=== PATIENT | male | born 1980 | race Caucasian/White ===

== ENCOUNTER 2021-11-20 15:00 | Emergency (ER) | payer OTHER, SELFPAY ==
[2021-11-20 15:01] VITALS: BP 150/94; PULSE 76; RESP 17; TEMP 36.6; O2SAT 98; BMI 37.8
--- NOTE | 2021-11-20 15:38 | ED_ITS ---
HPI - Allergic Reaction General Chief complaint: General Medical Stated complaint: Bee sting/Allergic reaction Time Seen by Provider: 11/20/21 15:11 Source: patient and family ( at bedside) Mode of arrival: ambulatory Limitations: no limitations History of Present Illness HPI narrative: 41-year-old male presenting to the ED with at bedside with complaints of erythema to his left calf medial aspect after he was stung by a bee prior to arrival. Reports that he took 50 mg of Benadryl prior to arrival. Reports that as a child he had allergic reaction to bee stings and required hospitalization. He denies any fevers, chills, dizziness, headaches, neck pain/stiffness, trouble swallowing or breathing, drooling, change in voice, wheezing, chest pain or shortness back on dyspnea on exertion, orthopnea, palpitations, paresthesias, nausea/vomiting/diarrhea, abdominal pain, swelling of the face/eyes/nose, sore throat or any other symptoms complaints or concerns at this time. MD complaint: allergic reaction and other (Erythema to left lower extremity status post bee sting) Onset (ago): hour(s) (Prior to arrival) Exposure: insect bite (bee sting) Known history of allergy to: bee stings Symptoms: itching Severity: mild Treatment prior to arrival: benadryl Previous Allergic Reaction History: prior ED visit(s), anaphylaxis and angioedema Related Data Previous Rx's Medication Instructions Recorded diphenhydramine HCl 25 mg capsule 50 mg PO TID PRN allergic reaction 11/20/21 (Allergy (diphenhydramine)) #14 caps epinephrine 0.3 mg/0.3 mL 0.3 mg (0.3 mL) IM Q20M PRN 11/20/21 injection, auto-injector (EpiPen) anaphylaxis #2 ea famotidine 20 mg tablet (Pepcid) 20 mg PO BID rash #14 tabs 11/20/21 prednisone 20 mg tablet 40 mg PO DAILY rash 5 days #10 tabs 11/20/21 Allergies Allergy/AdvReac Type Severity Reaction Status Date / Time bee pollen [bee stings] Allergy Anaphylaxis Verified 11/20/21 15:54 erythromycin base Allergy Unknown Verified 11/20/21 15:54 Review of Systems Review of Systems: Constitutional : No Fever, No Chills , no body aches, no recent illness Head/Face: No facial swelling, No facial redness ENT/Mouth : No oral/throat swelling, No Hoarseness, No Swallowing Difficulty Eyes: No Eye Pain, No Swelling, No Redness Cardiovascular : No Chest Pain, No SOB, No palpitations Respiratory : No Cough, No Sputum, No Wheezing, No Smoke Exposure, No Dyspnea Gastrointestinal : No Nausea, No Vomiting, No Diarrhea, No abdominal Pain Genitourinary : No Dysuria, No Urinary Frequency, No Hematuria Musculoskeletal : No joint pain, No Myalgias, No Joint Swelling Skin : No Skin Lesions, positive rash Neuro : No Weakness, No Numbness, No Headache, No dizziness, No tingling Psych : No Anxiety/Panic, No Depression Heme/Lymph: No Bruising, No Lymphadenopathy Endocrine : No Polyuria, No Polydipsia Denies changes in lotions or detergents. Denies new medications or any changes in medications. Denies drainage from rash. Denies any recent sick contacts or recent travel. Yes all other systems are reviewed and are negative PMFSH Past Medical History Attestation statement: The following information was validated with the patient. Source: old records reviewed and nursing notes reviewed Medical History (Updated 11/20/21 @ 15:48 by TAMARA Chakraborty) Back spasm Bee sting allergy Depression Sleep apnea Social History Social History Alcohol intake: current Alcohol intake frequency: 0-2 drinks per day Alcohol type: beer Patient Tobacco Use Status: Former Tobacco user Smoked in Last 30 Days: Yes Use of substances other than those prescribed or required for medical reasons: No Advance Directives: No Advance Directives Information Provided: Yes Physical Exam ED Vital Signs: Vital Signs - 24 hr 11/20/21 15:01 11/20/21 15:44 Temperature 98 F Pulse Rate 76 85 Respiratory Rate 17 18 Blood Pressure 150/94 H 112/76 Pulse Oximetry 98 96 Oxygen Delivery Method Room Air Room Air BMI result Body Mass Index 37.8 vital signs have been reviewed as normal and appeared to be correct. Blood pressure 150/94. Heart rate normal. Respiration rate normal. Temperature normal. Oxygen saturation normal. Appearance: Alert. Oriented X3. No acute distress. Head: Normal external exam. Normocephalic. Atraumatic. No angioedema noted. Eyes: PERRLA. EOMI. Conjunctiva and sclera normal. Eyelids normal. ENT: EAC normal. TM's Normal. Pharynx normal. Uvula midline. Moist mucous membranes. No lesions/ulcerations or masses noted on the tongue. Normal voice. No trismus noted. No drooling noted. No muffled voice noted. Neck: Normal inspection. Neck supple. FROM. No adenopathy. Thyroid Normal. No tracheal deviation noted. No crepitus is noted. No meningeal signs. No neck mass noted. No signs of trauma noted. CVS: Normal heart rate and rhythm. Heart sound normal. Pulses normal throughout. No murmurs/rales/gallops. Respiratory: No respiratory distress. Painless inspiration. Breath sounds normal. No wheezes/rales/rhonchi noted. Chest nontender. No crepitus is noted. No signs of trauma noted. No accessory muscle usage noted or decreased air movement noted. No signs of trauma. Abdomen: Soft and nontender. Bowel sounds normal in all 4 quadrants. No distention noted. No organomegaly noted. No visible injury noted. Back: No CVA tenderness. Full range of motion noted. Nontender. No signs of trauma. Patient neuro intact bilaterally and distally on all 4 extremities. Patient's reflexes intact bilaterally and distally on all 4 extremities. No rashes/lesion/induration/fluctuance or signs of infection noted. Skin: Skin warm and dry. Normal skin color. Normal skin turgor. To the left medial calf patient has some erythema with soft tissue swelling. No additional rashes/lesions/lacerations noted. Extremities: No lower extremity edema. No calf tenderness is noted. Extr emities exhibit normal range of motion and nontender. Neuro: Oriented X 3. No motor deficit. No sensory deficit. Reflexes normal. Normal steady gait. No focal neuro deficits noted. CN's II-XII intact bilaterally? Vascular: + radial pulses/+ 2 distal pedal pulses/+2 dorsalis pedis b/l. Normal cap refill. No cyanosis noted to upper extremity nails and lower extremity toes nails. Course Course Course Narrative: IMP/Plan: Allergic rxn. Not anaphylaxis. Not sepsis/ infectious etiology. Patient well appearing in no acute distress, breathing easily without throat symptoms. Speaking full sentences, and handling secretions without difficulty. There is no obvious threat to airway. Lungs are CTA in all tomas. No signs of angioedema, stridor, airway compromise, anaphylaxis or anaphylactic shock. Not c/w SSSS/ TEN/ Eryth multiforme/ Mancini Johnsons. Given HPI and PE - Will watch and observe. If patient continues to be symptom free - will d/c with return precautions. Patient understands and agrees with plan MDM - Allergic Reaction Medical Records Attestation: I reviewed the patient's medical records. Discharge Plan Discharge Clinical Impression: Allergic reaction, Bee sting Patient Disposition: Home, Self-Care Instructions: General Allergic Reaction (ED) Prescriptions: New diphenhydramine HCl [Allergy (diphenhydramine)] 25 mg capsule 50 mg PO TID PRN (Reason: allergic reaction) Qty: 14 0RF famotidine [Pepcid] 20 mg tablet 20 mg PO BID Qty: 14 0RF prednisone 20 mg tablet 40 mg PO DAILY 5 Days Qty: 10 0RF epinephrine [EpiPen] 0.3 mg/0.3 mL auto-injector 0.3 mg IM Q20M PRN (Reason: anaphylaxis) Qty: 2 0RF Rx Instructions: do not exceed 3 doses per episode Referrals: Mario Schulz MD [Primary Care Provider] - 2 days (your pcp) Stand Alone Forms: Work/School Release
[2021-11-20] MEDS: Famotidine 20 MG TABLET PO (15:42)
[2021-11-20] MEDS: predniSONE 20 MG TABLET 60 MG PO (15:42)
[2021-11-20 15:44] VITALS: BP 112/76; PULSE 85; RESP 18; O2SAT 96
--- NOTE | 2021-11-20 15:50 | PC.NURSE ---
pt a&ox3, vss, RR even and unlabored, localized pain at site of bee sting, medicated per provider order. no new orders at this time.
== END 2021-11-20 16:35 | disposition home or self-care (01) ==
PROVIDERS: Emergency Provider Emergency Medicine; PCP Internal Medicine
DX: L50.0 Allergic urticaria (principal)
CPT/HCPCS: 99284

== ENCOUNTER 2022-10-23 17:53 | Emergency (ER) | payer OTHER, SELFPAY ==
--- NOTE | 2022-10-23 18:21 | ED.GENADULT ---
HPI - General Adult General Chief complaint: Allergic Reaction Stated complaint: bee sting epipen x1 Time Seen by Provider: 10/23/22 18:27 Source: patient, RN notes reviewed and old records reviewed Mode of arrival: ambulatory History of Present Illness HPI narrative: 42-year-old male presents for evaluation of a bee sting. Patient reports that he was stung by a bee at approximately 5:30 p.m. today He was stung once on the left lower leg Patient reports a history of allergic reaction from about 30 years ago He states at that time his left leg swelled up pretty quickly and then he could see a rash and swelling spreading up his body Due to this previous reaction he immediately gave himself an EpiPen He reports that he feels well He denies any shortness of breath, swelling, difficulty swallowing No other complaints or concerns at this time Related Data Previous Rx's Medication Instructions Recorded diphenhydramine HCl 25 mg capsule 50 mg PO TID PRN allergic reaction 11/20/21 (Allergy (diphenhydramine)) #14 caps epinephrine 0.3 mg/0.3 mL 0.3 mg (0.3 mL) IM Q20M PRN 11/20/21 injection, auto-injector (EpiPen) anaphylaxis #2 ea famotidine 20 mg tablet (Pepcid) 20 mg PO BID rash #14 tabs 11/20/21 prednisone 20 mg tablet 40 mg PO DAILY rash 5 days #10 tabs 11/20/21 epinephrine 0.3 mg/0.3 mL 0.3 mg (0.3 mL) IM Q4H PRN 10/23/22 injection, auto-injector (EpiPen anaphylaxis #2 ea 2-Laz) Allergies Allergy/AdvReac Type Severity Reaction Status Date / Time bee pollen [bee stings] Allergy Anaphylaxis Verified 11/20/21 15:54 erythromycin base Allergy Unknown Verified 11/20/21 15:54 Review of Systems Constitutional: Constitutional: Denies chills and Denies fever(s) Cardiovascular: Cardiovascular: Denies chest pain and Reports dyspnea Respiratory: Respiratory: Denies cough and Reports dyspnea PMFSH Past Medical History Medical History (Updated 10/23/22 @ 19:25 by Mitch Guo) Back spasm Bee sting allergy Depression Sleep apnea Social History Social History Alcohol intake: current Alcohol intake frequency: 0-2 drinks per day Alcohol type: beer Patient Tobacco Use Status: Former Tobacco user Advance Directives: No Advance Directives Information Provided: Yes Physical Exam ED Vital Signs: Vital Signs - 24 hr 10/23/22 18:22 Temperature 98.4 F Pulse Rate 99 Respiratory Rate 18 Blood Pressure 144/101 H Pulse Oximetry 97 Oxygen Delivery Method Room Air BMI result Body Mass Index 38.6 Const General: healthy appearing, comfortable, no acute distress, alert and awake Nutritional Appearance: well nourished Orientation/consciousness: patient oriented x3 HENMT Other: No oral, perioral or retropharyngeal edema Head: Yes normocephalic and Yes atraumatic Throat: Yes posterior oropharynx normal Eyes Eyelids: Yes eyelids normal Conjunctivae: conjunctivae normal Sclerae: sclerae normal Corneas: corneas normal Pupils: Equal, round and reactive pupils present EOM: EOMs intact bilaterally Neck Neck: Yes full ROM Resp Effort & Inspection: normal respiratory effort, able to speak in complete sentences, no audible wheezes, not labored and no stridor Auscultation: clear to auscultation bilaterally Skin General skin exam: no rashes or lesions noted and elasticity normal Neuro General: patient oriented x3 Cranial nerves: Yes Equal, round and reactive pupils present and Yes Bilaterally intact EOM present Cognition (Neuro): normal cognition Extrem Other: Moving all extremities well without any obvious deformities Course Course Course Narrative: This is an RME: Additional HPI, ROS, PE not included below will be deferred to primary provider. 42 yo M presents w/ bee sting to left ankle about an hour and a half ago. Patient gave himself an epi pen. 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 Denies any new symptoms, he is stable for discharge this time. A new EpiPen pack was sent to his pharmacy. He was instructed to return for any new or worsening symptom Time: 19:31 Medications Administered Discontinued Medications Generic Name Dose Route Start Last Admin Trade Name Freq PRN Reason Stop Dose Admin Diphenhydramine HCl 25 mg 10/23/22 18:37 10/23/22 18:55 Diphenhydramine Hcl 25 Mg Capsule PO 10/23/22 18:38 25 mg ONCE ONE Administration Famotidine 20 mg 10/23/22 18:37 10/23/22 18:55 Famotidine 20 Mg Tablet PO 10/23/22 18:38 20 mg ONCE ONE Administration Prednisone 40 mg 10/23/22 18:37 10/23/22 18:55 Prednisone 20 Mg Tablet PO 10/23/22 18:38 40 mg ONCE ONE Administration Medical Decision Making Medical Decision Making MDM Narrative: 32-year-old male presents for evaluation after a bee sting. He self injected an EpiPen. He has a pinpoint insect bite to his left lower extremity, no surrounding rash, no significant edema. No evidence of anaphylaxis. The patient will be observed in the ER. Given his describes history of previous significant reaction he was treated with oral prednisone, Benadryl and Pepcid though he has no signs of anaphylaxis as previously mentioned. Differential Diagnosis Differential Diagnoses: The differential diagnosis associated with the presentation includes Allergic reaction Insect bite Bee sting Urticaria Discharge Plan Discharge Clinical Impression: Bee sting Patient Disposition: Home, Self-Care Additional Instructions: Your treated with prednisone, Benadryl and Pepcid for an allergic reaction given your history. It does not appear that you had any allergic reaction today after your bee sting This may be because you self-treated with epinephrine before coming to the hospital Follow-up with your primary doctor A new prescription for EpiPen was sent to your pharmacy Prescriptions: New epinephrine [EpiPen 2-Laz] 0.3 mg/0.3 mL auto-injector 0.3 mg IM Q4H PRN (Reason: anaphylaxis) Qty: 2 0RF No Action diphenhydramine HCl [Allergy (diphenhydramine)] 25 mg capsule 50 mg PO TID PRN (Reason: allergic reaction) Qty: 14 0RF famotidine [Pepcid] 20 mg tablet 20 mg PO BID Qty: 14 0RF prednisone 20 mg tablet 40 mg PO DAILY 5 Days Qty: 10 0RF epinephrine [EpiPen] 0.3 mg/0.3 mL auto-injector 0.3 mg IM Q20M PRN (Reason: anaphylaxis) Qty: 2 0RF Rx Instructions: do not exceed 3 doses per episode
[2022-10-23 18:22] VITALS: BP 144/101; PULSE 99; RESP 18; TEMP 36.9; O2SAT 97; BMI 38.6
[2022-10-23] MEDS: predniSONE 20 MG TABLET 40 MG PO (18:55)
[2022-10-23] MEDS: Famotidine 20 MG TABLET PO (18:55)
[2022-10-23] MEDS: diphenhydrAMINE HCL 25 MG CAPSULE PO (18:55)
== END 2022-10-23 19:39 | disposition home or self-care (01) ==
PROVIDERS: Emergency Provider Internal Medicine; PCP Internal Medicine
DX: S80.862A Insect bite (nonvenomous), left lower leg, initial encounter (principal); W57.XXXA Bitten or stung by nonvenomous insect and other nonvenomous arthropods, initial encounter; Y93.9 Activity, unspecified; Y92.9 Unspecified place or not applicable; Y99.9 Unspecified external cause status
CPT/HCPCS: 99282; 99283

== ENCOUNTER 2022-11-21 17:36 | Emergency (ER) | payer OTHER, SELFPAY ==
[2022-11-21 17:40] VITALS: BP 140/83; PULSE 108; RESP 20; TEMP 36.6; O2SAT 96; BMI 38.1
== END 2022-11-21 21:52 | disposition left against medical advice (07) ==
PROVIDERS: Emergency Provider Emergency Medicine
DX: T63.441A Toxic effect of venom of bees, accidental (unintentional), initial encounter (principal); Y92.9 Unspecified place or not applicable
CPT/HCPCS: 99281

== ENCOUNTER 2022-11-22 15:10 | Emergency (ER) | payer OTHER, SELFPAY ==
[2022-11-22 15:45] VITALS: PULSE 89; RESP 16; TEMP 36.9; O2SAT 96; BMI 39.7
--- NOTE | 2022-11-22 15:46 | ED_ITS ---
HPI - Allergic Reaction General Chief complaint: Allergic Reaction Stated complaint: bee sting t-1, L forearm is swollen, tender Time Seen by Provider: 11/22/22 16:24 Source: patient Mode of arrival: ambulatory Limitations: no limitations History of Present Illness HPI narrative: 42 yo male right hand dominant here with swelling/redness/pain to left forearm after being stung by a bee yesterday. 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 No difficult breathing, chest pain, coug h, vomiting, diarrhea, abdominal cramping. No reports of numbness, tingling, fevers, chills. Related Data Previous Rx's Medication Instructions Recorded diphenhydramine HCl 25 mg capsule 50 mg PO TID PRN allergic reaction 11/20/21 (Allergy (diphenhydramine)) #14 caps epinephrine 0.3 mg/0.3 mL 0.3 mg (0.3 mL) IM Q20M PRN 11/20/21 injection, auto-injector (EpiPen) anaphylaxis #2 ea famotidine 20 mg tablet (Pepcid) 20 mg PO BID rash #14 tabs 11/20/21 prednisone 20 mg tablet 40 mg PO DAILY rash 5 days #10 tabs 11/20/21 epinephrine 0.3 mg/0.3 mL 0.3 mg (0.3 mL) IM Q4H PRN 10/23/22 injection, auto-injector (EpiPen anaphylaxis #2 ea 2-Laz) doxycycline monohydrate 100 mg 100 mg PO BID #14 caps 11/22/22 capsule prednisone 20 mg tablet 60 mg PO DAILY #15 tabs 11/22/22 Allergies Allergy/AdvReac Type Severity Reaction Status Date / Time bee pollen [bee stings] Allergy Anaphylaxis Verified 11/20/21 15:54 erythromycin base Allergy Unknown Verified 11/20/21 15:54 Review of Systems Review of Systems: Yes all other systems are reviewed and are negative Constitutional: Constitutional: Reports no additional constitutional complaints, Denies body ache(s), Denies chills, Denies fever(s), Denies headache(s) and Denies weakness Eyes: Eyes: Reports no additional eye complaints and Denies change in vision ENT: Reports system reviewed and no additional complaints, except as documented, Denies dizziness, Denies headache(s), Denies nasal congestion, Denies nasal discharge and Denies neck pain Cardiovascular: Cardiovascular: Reports no additional cardiovascular complaints, Denies chest pain, Denies leg edema and Denies dyspnea Respiratory: Respiratory: Reports no additional respiratory complaints, Denies cough and Denies dyspnea Gastrointestinal: Gastrointestinal: Reports no additional gastrointestinal complaints, Denies abdominal pain, Denies diarrhea, Denies nausea and Denies vomiting Genitourinary: Genitourinary: Denies urinary incontinence Musculoskeletal: Musculoskeletal: Reports no additional musculoskeletal complaints, Denies back pain, Denies arthralgias, Denies joint swelling, Denies neck pain, Denies numbness and Denies tingling Integumentary/Breasts: Skin/Breast: Reports system reviewed and no additional complaints, except as docu, Reports swelling, Reports erythema and Denies rash Neurologic: Reports system reviewed and no additional complaints, except as documented, Denies dizziness, Denies headache(s), Denies numbness, Denies tingling and Denies weakness PMFSH Past Medical History Attestation statement: The following information was validated with the patient. Source: old records reviewed and nursing notes reviewed Medical History Back spasm Bee sting allergy Depression Sleep apnea Social History Social History Alcohol intake: current Alcohol intake frequency: 0-2 drinks per day Alcohol type: beer Patient Tobacco Use Status: Former Tobacco user Advance Directives: No Advance Directives Information Provided: Yes Physical Exam ED Vital Signs: Vital Signs - 24 hr 11/22/22 15:45 Temperature 98.4 F Pulse Rate 89 Respiratory Rate 16 Pulse Oximetry 96 Oxygen Delivery Method Room Air BMI result Body Mass Index 39.7 Const General: cooperative, healthy appearing, comfortable and no acute distress Orientation/consciousness: patient oriented x3 Limitations: no limitations HENMT Head: Yes normal to inspection Ears: hearing grossly normal bilaterally Eyes General: appearance normal, both eyes and all related structures Pupils: Equal, round and reactive pupils present Neck Neck: Yes normal visual inspection Chest Chest palpation & inspection: normal inspection of the chest Resp Effort & Inspection: normal respiratory effort Auscultation: clear to auscultation bilaterally Cardio Rate: regular rate Rhythm: regular rhythm Peripheral pulses: Peripheral pulses 2+ throughout Neuro General: patient oriented x3 Cranial nerves: Yes Equal, round and reactive pupils present Extrem Other: 2+ radial and ulnar pulses, normal distal sensation, normal passive and active rom of LUE Compartments are soft and compressible Course Course Course Narrative: This is an RME: Additional HPI, ROS, PE not included below will be deferred to primary provider. This is a [id number], with a history of hives from bee stings, presenting to the emergency department with complaints of left forearm swelling, tenderness since yesterday. Patient reports that he was done once in the left forearm. He went to the emergency department yesterday after administering an EpiPen dose to him self yesterday he waited in the waiting room and left without being seen. He states that he is feeling okay right now, however has had increasing redness, swelling, warm to the touch to his left arm. He is under no acute distress, airway is patent, no wheezes noted. Plan: Further ER evaluation needed. Medical Decision Making Medical Decision Making MDM Narrative: 42 yo male right hand dominant here with swelling/redness/pain to left forearm after being stung by a bee yesterday. 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 No difficult breathing, chest pain, cough, vomiting, diarrhea, abdominal cramping. No reports of numbness, tingling, fevers, chills. On exam patient with almost circumferential erythema/swelling, compartments are soft and compressible. CMS intact distally. FROM. May be secondary to allergy although consider cellulitis. Patient will be started on prednisone, doxycycline this week Reviewed worrisome signs/symptoms with patient and when to seek additional care. Comfortable with discharge home Differential Diagnosis Differential Diagnoses: The differential diagnosis associated with the prese ntation includes cellulitis, allergic reaction low concern for compartment syndrome, nec fasc-compartments are soft and compressible, pain is NOT out of proportion, Vitals are stable Admission/Observation Consideration of admission/observation: Escalation of care including admission/observation considered Mild allergic reaction/cellulitis that would be conducive to oral antibiotics, no need at this time to initiate iv antibiotics. Prescription Management I considered prescription management with: Antibiotic see abive Discharge Plan Discharge Clinical Impression: Allergic reaction, Cellulitis Patient Disposition: Home, Self-Care Instructions: Cellulitis (ED), General Allergic Reaction (ED) Additional Instructions: Take the medications as prescribed Return for fever, increasing redness/swelling/pain, numbness/tingling in your fingers Prescriptions: New prednisone 20 mg tablet 60 mg PO DAILY Qty: 15 0RF doxycycline monohydrate 100 mg capsule 100 mg PO BID Qty: 14 0RF No Action diphenhydramine HCl [Allergy (diphenhydramine)] 25 mg capsule 50 mg PO TID PRN (Reason: allergic reaction) Qty: 14 0RF famotidine [Pepcid] 20 mg tablet 20 mg PO BID Qty: 14 0RF prednisone 20 mg tablet 40 mg PO DAILY 5 Days Qty: 10 0RF epinephrine [EpiPen] 0.3 mg/0.3 mL auto-injector 0.3 mg IM Q20M PRN (Reason: anaphylaxis) Qty: 2 0RF Rx Instructions: do not exceed 3 doses per episode epinephrine [EpiPen 2-Laz] 0.3 mg/0.3 mL auto-injector 0.3 mg IM Q4H PRN (Reason: anaphylaxis) Qty: 2 0RF Referrals: Physician,Unknown J [Primary Care Provider] - 1 week Interventions: ED Discharge Assessment Last Done: 11/22/22 16:52 Discharge Date/Time: 11/22/22 16:53
== END 2022-11-22 16:53 | disposition home or self-care (01) ==
PROVIDERS: Emergency Provider Student in an Organized Health Care Education/Training Program
DX: T63.441A Toxic effect of venom of bees, accidental (unintentional), initial encounter (principal); L03.114 Cellulitis of left upper limb; Y92.9 Unspecified place or not applicable
CPT/HCPCS: 99282; 99283

== ENCOUNTER 2024-10-23 17:59 | Emergency (ER) | payer OTHER, SELFPAY ==
--- NOTE | 2024-10-23 18:07 | PC.NURSE ---
pt UTD on tetanus- last dose 12/2023
[2024-10-23 18:08] VITALS: BP 121/85; PULSE 85; RESP 18; TEMP 36.6; O2SAT 98; BMI 38.6
--- NOTE | 2024-10-23 19:58 | ED_ITS ---
HPI - General Adult General Chief complaint: General Medical Stated complaint: bat exposure Time Seen by Provider: 10/23/24 18:18 Source: patient Limitations: no limitations History of Present Illness ED Provider: Jenny oGodman PA-C HPI narrative: 44 year old male with no pertinent pmhx who reports to the ED with concerns after a bat exposure. He states he and his woke up to two bats in their bedroom 2 nights ago. He is here to discuss a rabies vaccine. The bats were alive. He states he removed one bat using a hamper and the other bat using a trashbag. He was not bitten. He never physically touched either animal. He denies experiencing new symtoms. He has not been vaccinated before. Related Data Previous Rx's ?Medication ?Instructions ?Recorded diphenhydramine HCl 25 mg capsule 50 mg (2 x 25 mg) PO TID PRN 11/20/21 (Allergy (diphenhydramine)) allergic reaction #14 caps epinephrine 0.3 mg/0.3 mL 0.3 mg (0.3 mL) IM Q20M PRN 11/20/21 injection, auto-injector (EpiPen) anaphylaxis #2 ea famotidine 20 mg tablet (Pepcid) 20 mg PO BID rash #14 tabs 11/20/21 prednisone 20 mg tablet 40 mg (2 x 20 mg) PO DAILY r kala 5 11/20/21 days #10 tabs epinephrine 0.3 mg/0.3 mL 0.3 mg (0.3 mL) IM Q4H PRN 0 10/23/22 injection, auto-injector (EpiPen anaphylaxis #2 ea 2-Alz) doxycycline monohydrate 100 mg 100 mg PO BID #14 caps 11/22/22 capsule prednisone 20 mg tablet 60 mg (3 x 20 mg) PO DAILY # 15 tabs 11/22/22 Allergies Allergy/AdvReac Type Severity Reaction Status Date / Time bee pollen (bee stings) Allergy Anaphylaxis Verified 10/23/24 18:15 erythromycin base Allergy Unknown Verified 10/23/24 18:15 Review of Systems Review of Systems: Yes all other systems are reviewed and are negative Constitutional: Constitutional: Denies fatigue and Denies fever(s) Respiratory: Respiratory: Denies cough Gastrointestinal: Gastrointestinal: Denies abdominal pain, Denies nausea and Denies vomiting Musculoskeletal: Musculoskeletal: Reports arthralgias Endocrine: Endocrine: Denies fatigue PMFSH Past Medical History Attestation statement: The following information was validated with the patient. Medical History Back spasm Bee sting allergy Depression Sleep apnea Social History Social History Alcohol intake: current Alcohol intake frequency: holidays/special occasions only Alcohol type: beer Patient Tobacco Use Status: Former Tobacco user Smoked in Last 30 Days: No Use of substances other than those prescribed or required for medical reasons: Yes Substance Use Type: Marijuana Advance Directives: No Advance Directives Information Provided: Yes Do you have a plan to hurt others: No Plan Physical Exam ED Vital Signs: Vital Signs - 24 hr 10/23/24 18:08 Temperature 97.9 F Pulse Rate 85 Respiratory Rate 18 Blood Pressure 121/85 Pulse Oximetry 98 Oxygen Delivery Method Room Air BMI result Body Mass Index 38.6 Const Other: Alert well-appearing Orientation/consciousness: patient oriented x3 Resp Effort & Inspection: normal respiratory effort Cardio Other: Normal peripheral perfusion Skin Other: Warm dry no rash Neuro General: patient oriented x3, gait normal, no focal motor deficits and CN's II- XI intact bilaterally Psych Other: Cooperative Medical Decision Making Medical Decision Making MDM Narrative: 44 year old male with no pertinent pmhx who reports to the ED with concerns after a bat exposure. He states he and his woke up to two bats in their bedroom 2 nights ago. He is here to discuss a rabies vaccine. The bats were alive. He states he removed one bat using a hamper and the other bat using a trashbag. He was not bitten. He never physically touched either animal. He denies experiencing new symtoms. He has not been vaccinated before. No chronic issues History: Per patient I have considered the following differential diagnoses: Potential exposure to a bat Plan: There was no physical encounter with the back, the bat was in the room, when the patient remove the back from the home, there was no physical contact. This does not constitute the need to initiate antibiotic therapy or vaccine series. Discharge Plan Discharge Clinical Impression: Exposure to bat without known bite Patient Disposition: Home, Self-Care Additional Instructions: Being in proximity of a mammal, that could potentially carry rabies, does not constitute the need for rabies antibody therapy or initiating the vaccine series. Follow up with your primary care provider as needed. Prescriptions: No Action diphenhydramine HCl [Allergy (diphenhydramine)] 25 mg capsule 50 mg PO TID PRN (Reason: allergic reaction) Qty: 14 0RF famotidine [Pepcid] 20 mg tablet 20 mg PO BID Qty: 14 0RF prednisone 20 mg tablet 40 mg PO DAILY 5 Days Qty: 10 0RF epinephrine [EpiPen] 0.3 mg/0.3 mL auto-injector 0.3 mg IM Q20M PRN (Reason: anaphylaxis) Qty: 2 0RF Rx Instructions: do not exceed 3 doses per episode epinephrine [EpiPen 2-Laz] 0.3 mg/0.3 mL auto-injector 0.3 mg IM Q4H PRN (Reason: anaphylaxis) Qty: 2 0RF prednisone 20 mg tablet 60 mg PO DAILY Qty: 15 0RF doxycycline monohydrate 100 mg capsule 100 mg PO BID Qty: 14 0RF Print Language: [place]
[2024-10-23 20:43] VITALS: BP 121/85; PULSE 85; RESP 18; TEMP 36.6; O2SAT 98
== END 2024-10-23 20:44 | disposition home or self-care (01) ==
PROVIDERS: Emergency Provider Internal Medicine; PCP Internal Medicine
DX: Z20.3 Contact with and (suspected) exposure to rabies (principal)
CPT/HCPCS: 99282; 99283

== ENCOUNTER 2024-10-23 23:45 | Emergency (ER) | payer OTHER, SELFPAY ==
[2024-10-23 23:55] VITALS: BP 127/74; PULSE 78; RESP 18; TEMP 36.3; O2SAT 96; BMI 39.3
--- NOTE | 2024-10-24 02:31 | ED.GENADULT ---
HPI - General Adult General Chief complaint: Animal Bite Stated complaint: rabies vaccine, exposed to another bat Time Seen by Provider: 10/24/24 02:25 Source: patient Mode of arrival: ambulatory Limitations: no limitations History of Present Illness ED Provider: Dr. Tenisha Brown HPI narrative: Patient comes to the emergency room complaining of a bad exposure. Patient states that 2 days ago, he saw beds in his bedroom and last night, he saw another bad. Patient states that he was seen here earlier today, he has a discussion with the provider about the immunizations with immunoglobulin/vaccine. Patient states that he does not believe that he got bitten, and opted not to get immunized for rabies. Patient states that after this conversation , he went home. Patient states that his and [id number] went to a different hospital and they got immunized. Patient states that his family sent him back to the hospital to get immunized. Patient states that he is completely asymptomatic. However, given the patient's family's request, he is agreeable to get immunized. Patient states that he is up-to-date with his Tdap, which she got about a year to 2 years ago Related Data Previous Rx's ?Medication ?Instructions ?Recorded diphenhydramine HCl 25 mg capsule 50 mg (2 x 25 mg) PO TID PRN 11/20/21 (Allergy (diphenhydramine)) allergic reaction #14 caps epinephrine 0.3 mg/0.3 mL 0.3 mg (0.3 mL) IM Q20M PRN 11/20/21 injection, auto-injector (EpiPen) anaphylaxis #2 ea famotidine 20 mg tablet (Pepcid) 20 mg PO BID rash #14 tabs 11/20/21 prednisone 20 mg tablet 40 mg (2 x 20 mg) PO DAILY rash 5 11/20/21 days #10 tabs epinephrine 0.3 mg/0.3 mL 0.3 mg (0.3 mL) IM Q4H PRN 10/23/22 injection, auto-injector (EpiPen anaphylaxis #2 ea 2-Laz) doxycycline monohydrate 100 mg 100 mg PO BID #14 caps 11/22/22 capsule prednisone 20 mg tablet 60 mg (3 x 20 mg) PO DAILY #15 tabs 11/22/22 Allergies Allergy/AdvReac Type Severity Reaction Status Date / Time bee pollen (bee stings) Allergy Anaphylaxis Verified 10/23/24 23:58 erythromycin base Allergy Unknown Verified 10/23/24 23:58 Review of Systems Review of Systems: Constitutional : No Weight loss, No Fever, No Chills, No Night Sweats, No Fatigue, No Malaise ENT/Mouth : No Hearing loss, No Ear Pain, No Nasal Congestion, No Sinus Pain, No Hoarseness, No sore throat, No Rhinorrhea, No Swallowing Difficulty Eyes: No Eye Pain, No Swelling, No Redness, No Foreign Body, No Discharge, No Vision Changes Cardiovascular : No Chest Pain, No SOB, No Dyspnea on Exertion, No Orthopnea, No Edema, No Palpitations Respiratory : No Cough, No Sputum, No Wheezing, No Smoke Exposure, No Dyspnea Gastrointestinal : No Nausea, No Vomiting, No Diarrhea, No Constipation, No abdominal Pain, No Hematochezia, No Melena Genitourinary : no irregular bleeding, No Dysuria, No Urinary Frequency, No Hematuria, No Urinary Incontinence, No Urgency, No Flank Pain, No Urinary Flow Changes, No Hesitancy Musculoskeletal : No joint pain, No Myalgias, No Joint Swelling Skin : No Skin Lesions, No rash Neuro : No Weakness, No Numbness, No Paresthesias, No Loss of Consciousness, No Dizziness, No Headache Psych : No Anxiety/Panic, No Depression, No SI/HI/AH/VH, No Social Issues, Heme/Lymph: No Bruising, No Bleeding,No Lymphadenopathy Endocrine : No Polyuria, No Polydipsia, No Temperature Intolerance PMFSH Past Medical History Medical History Exposure to bat without known bite Sleep apnea Back spasm Depression Bee sting allergy Social History Social History Alcohol intake: current Alcohol intake frequency: holidays/special occasions only Alcohol type: beer Patient Tobacco Use Status: Former Tobacco user Substance Use Type: Marijuana Advance Directives: No Advance Directives Information Provided: Yes Physical Exam ED Exam Exam: Appearance: Alert. Oriented X3. No acute distress. Eyes: Pupils equal, round and reactive to light. ENT: Pharynx normal. Neck: Normal inspection. Neck supple. No lymph nodes noted. No crepitus CVS: Normal heart rate and rhythm. Pulses normal. Normal S1 and S2 Respiratory: No respiratory distress. Breath sounds normal. No Wheezing. No rales Abdomen: Soft and nontender. No rigidity. No distention. Skin: Skin warm and dry. Normal skin color. Normal skin turgor. Extremities: No lower extremity edema. No Lacerations. No Rash Neuro: Oriented X 3. No motor deficit. No sensory deficit. Moving all extremities. No slurred speech. CN 2 through 12 grossly intact Psych: calm, cooperative, normal affect Vital Signs: Vital Signs - 24 hr 10/23/24 23:55 Temperature 97.3 F Pulse Rate 78 Respiratory Rate 18 Blood Pressure 127/74 Pulse Oximetry 96 Oxygen Delivery Method Room Air BMI result Body Mass Index 39.3 Course Course Course Narrative: Patient had an exposure to bats. Patient agreeable now to get immunized, both immune globulin and vaccine. Patient is aware of the series of immunizations and is agreeable First dose given today here in the emergency room However equal employment opportunity officer has been made aware Medical Decision Making Medical Decision Making MDM Narrative: Patient tolerated well the immune globulin and vaccine for rabies Discharge Plan Discharge Clinical Impression: Exposure to bat without known bite Patient Disposition: Home, Self-Care Instructions: Rabies (ED) Additional Instructions: You will receive a set of instructions and dates for your follow-up immunizations. Please follow-up with your primary care physician tomorrow. If you have any worsening or new symptoms, please return to the emergency room or call 911 Prescriptions: No Action diphenhydramine HCl [Allergy (diphenhydramine)] 25 mg capsule 50 mg PO TID PRN (Reason: allergic reaction) Qty: 14 0RF famotidine [Pepcid] 20 mg tablet 20 mg PO BID Qty: 14 0RF prednisone 20 mg tablet 40 mg PO DAILY 5 Days Qty: 10 0RF epinephrine [EpiPen] 0.3 mg/0.3 mL auto-injector 0.3 mg IM Q20M PRN (Reason: anaphylaxis) Qty: 2 0RF Rx Instructions: do not exceed 3 doses per episode epinephrine [EpiPen 2-Laz] 0.3 mg/0.3 mL auto-injector 0.3 mg IM Q4H PRN (Reason: anaphylaxis) Qty: 2 0RF prednisone 20 mg tablet 60 mg PO DAILY Qty: 15 0RF doxycycline monohydrate 100 mg capsule 100 mg PO BID Qty: 14 0RF Print Language: Nepalese
[2024-10-24 02:43] VITALS: BP 124/89; PULSE 66; RESP 16; TEMP 36.6; O2SAT 97
[2024-10-24] MEDS: Rabies Immune Globulin/PF 900 UNIT/3 ML VIAL 2076 UNIT IM (03:24)
[2024-10-24] MEDS: Rabies Vaccine (PCEC)/PF 1 ML VIAL IM (03:25)
[2024-10-24 03:42] VITALS: BP 124/89; PULSE 66; RESP 16; TEMP 36.6; O2SAT 97
== END 2024-10-24 03:42 | disposition home or self-care (01) ==
PROVIDERS: Emergency Provider Emergency Medicine; PCP Internal Medicine
DX: Z20.3 Contact with and (suspected) exposure to rabies (principal); Z23 Encounter for immunization
CPT/HCPCS: 90375; 90471; 90675; 96372; 99283; 99284

== ENCOUNTER 2024-11-07 10:00 | Outpatient (RCR) | payer OTHER, SELFPAY ==
[2024-10-27 09:56] VITALS: BP 141/92; PULSE 79; RESP 20; TEMP 36.6; O2SAT 97
[2024-10-27] MEDS: Rabies Vaccine (PCEC)/PF 1 ML VIAL IM (09:59)
[2024-10-31 09:53] VITALS: BP 141/80; PULSE 80; RESP 18; TEMP 36.6
[2024-10-31] MEDS: Rabies Vaccine (PCEC)/PF 1 ML VIAL IM (09:56)
[2024-11-07 10:25] VITALS: BP 156/91; PULSE 87; RESP 18; TEMP 36.3; O2SAT 98
[2024-11-07] MEDS: Rabies Vaccine (PCEC)/PF 1 ML VIAL IM (10:29)
== END 2024-11-07 10:33 | disposition home or self-care (01) ==
LOC: HO.INF 10:00
PROVIDERS: Visit Provider Physician Assistant
DX: Z20.3 Contact with and (suspected) exposure to rabies (principal)
CPT/HCPCS: 90471; 90675